=== PATIENT | female | born 1935 ===

== ENCOUNTER → 2024-08-31 | Outpatient (CLI) | payer OTHER ==
[2024-08-31 15:56] VITALS: BP 144/66; PULSE 80; RESP 16; O2SAT 96
[2024-08-31 16:30] VITALS: BP 152/72; PULSE 82; RESP 16; O2SAT 96
== END | disposition home or self-care (01) ==
LOC: CHF HDHVI 15:53
PROVIDERS: ATTEND Internal Medicine Cardiovascular Disease
DX: S50.312A Abrasion of left elbow, initial encounter (principal); S80.819A Abrasion, unspecified lower leg, initial encounter; X58.XXXA Exposure to other specified factors, initial encounter; Y93.89 Activity, other specified; Y92.89 Other specified places as the place of occurrence of the external cause; Y99.8 Other external cause status
CPT/HCPCS: G0463